=== PATIENT | male | born 1990 | race Caucasian/White ===

== ENCOUNTER 2022-08-12 14:07 | Outpatient (CLI) | payer MEDICAID, SELFPAY ==
[2022-08-12 17:38] LABS: Glucose* 92 mg/dL (60-115)
== END 2022-08-12 14:08 | disposition home or self-care (01) ==
LOC: NFLDREF 14:14
PROVIDERS: PCP Family Medicine; Visit Provider Family Medicine
DX: Z00.00 Encounter for general adult medical examination without abnormal findings (principal); Z13.1 Encounter for screening for diabetes mellitus
CPT/HCPCS: 82947